=== PATIENT | male | born 1990 | race Caucasian/White ===

== ENCOUNTER 2023-07-23 18:42 | Emergency (ER) | payer SELFPAY ==
[~2023-07-23] VITALS: Ht 172.7 cm; Wt 68.0 kg
[2023-07-23 18:51] VITALS: TEMP 98.2; O2SAT 98
[2023-07-23] MEDS ORDERED: IBUPROFEN 600MG TABLET PO ONE (21:15)
[2023-07-23] MEDS ORDERED: BACITRACIN ZINC OINT UDPKT TOP ONE (21:15)
[2023-07-23] MEDS ORDERED: LIDOCAINE HCL/PF 1% 10 MG/ML 5ML VIAL INFIL ONE (21:15)
[2023-07-23] MEDS ORDERED: AMOXICILLIN/POTASSIUM CLAVULANATE 875/125MG TAB PO ONE (21:15)
[2023-07-23] MEDS ORDERED: TETANUS, DIPHTHERIA, PERTUSSIS VAC/PF 0.5ML (>10YR OLD) IM ONE (21:15)
[2023-07-24] MEDS ORDERED: BACITRACIN ZINC OINT UDPKT TOP NR (02:00)
[2023-07-24] MEDS ORDERED: AMOXICILLIN/POTASSIUM CLAVULANATE 875/125MG TAB PO NR (02:00)
[2023-07-24] MEDS ORDERED: IBUPROFEN 600MG TABLET PO NR (02:00)
[2023-07-24] MEDS ORDERED: LIDOCAINE HCL/PF 1% 10 MG/ML 5ML VIAL INFIL NR (02:00)
[2023-07-24] MEDS ORDERED: TETANUS, DIPHTHERIA, PERTUSSIS VAC/PF 0.5ML (>10YR OLD) IM ONE (02:15)
[2023-07-24] MEDS ORDERED: AMOX1TAB16 MT (02:20)
[2023-07-24] MEDS ORDERED: BO1 TP (02:20)
[2023-07-24] MEDS ORDERED: IBUP-2029 MT (02:20)
[2023-07-24 02:22] VITALS: BP 141/90; PULSE 95; RESP 16
== END 2023-07-24 04:05 | disposition home or self-care (01) ==
LOC: ER 18:42
DX: S01.511A Laceration without foreign body of lip, initial encounter (principal); W54.0XXA Bitten by dog, initial encounter; Y93.89 Activity, other specified; Y92.89 Other specified places as the place of occurrence of the external cause; Y99.8 Other external cause status
CPT/HCPCS: 12011; 99283; 90715; 90471; J3490; Z7610 ×2